=== PATIENT | male | born 1960 | race Asian ===

== ENCOUNTER 2023-07-14 11:18 | Inpatient (IN) | payer SELFPAY ==
[2023-07-14] VITALS (13 sets, daily range): BP systolic 172–237; BP diastolic 84–106; PULSE 73–96; RESP 14–21; TEMP 36.6–36.8; O2SAT 98–100; BMI 16.9
--- NOTE | ~2023-07-14 | CT_ITS ---
EXAMINATION: CT abdomen pelvis wo con DATE: 07/14/2023 13:32 INDICATION: Hypertension TECHNIQUE: Computed tomography (CT) of the abdomen and pelvis was performed without intravenous contr ast. Automated exposure control and iterative reconstruction technique were employed. The dose-length product was 187.62 mGy-cm. COMPARISON: None FINDINGS: Mild discoid atelectasis at the posterior sulcus of the right lower lobe. Heart size is normal. No pe ricardial or pleural effusion. Decreased attenuation the blood pool relative to myocardium consistent with anemia. Liver, gallbladder, spleen, pancreas and bilateral adrenal glands are normal. Kidneys a nd ureters are normal with no urolithiasis, hydroureteronephrosis or perinephric/ureteral stranding. Bowels including the appendix are normal with no obstruction. Bladder is unremarkable. Small amount o f nonspecific free fluid in the deep pelvis. No abscess or free intraperitoneal gas. No pathologicall y enlarged abdominal or pelvic lymphadenopathy. Mild scattered degenerative skeletal changes in the v isualized spine and bilateral hip and sacroiliac joints. IMPRESSION: 1. Small amount of nonspecific ascites in the deep pelvis. No urolithiasis or acute intra-abdominal/p elvic process. Reviewed, dictated and finalized at location A. ICATION PACKAGING CONSULTANT IMPRESSION: 1. Small amount of nonspecific ascites in the deep pelvis. No urolithiasis or a cute intra-abdominal/pelvic process.
--- NOTE | ~2023-07-14 | MR_ITS ---
EXAMINATION: MR brain/brain stem wo/w con DATE: 07/18/2023 09:11 INDICATION: Visual loss in left eye. TECHNIQUE: Magnetic resonance imaging (MRI) of the brain and brainstem was performed without and with 9 mL MultiHance intravenous contrast. COMPARISON: None. FINDINGS: There are punctate foci of old microhemorrhage in the left thalamus and left occipital lobe . There are scattered areas of nonspecific increased T2-weighted signal intensity in the cerebral whi te matter. There are old infarcts involving the right basal ganglia, bilateral thalami, and bilateral temporal stem white matter. There is no intracranial hemorrhage or acute infarction. The ventricles are normal in size. There is a 3 mm mass of contrast enhancement at left porus acusticus. The inner e ars and tympanic cavities are normal. There are trace mastoid effusions. The orbits are normal. IMPRESSION: 1. 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 2. Mild nonspecific cerebral white matter disease, which likely represents chronic small vessel ische janina disease. 3. 3 mm mass of contrast enhancement at left porus acusticus, which may be normal venous enhancement or a vestibular schwannoma. Reviewed, dictated and finalized at location A. TESTER IMPRESSION: 1. 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 2. Mild nonspecific cerebral white matter disease, which likely represents biscuit packer francoise small vessel ischemic disease. 3. 3 mm mass of contrast enhancement at left porus acusticus, which may be norm al venous enhancement or a vestibular schwannoma.
--- NOTE | ~2023-07-14 | MR_ITS ---
EXAMINATION: MR orbits face neck wo/w con DATE: 07/18/2023 09:11 INDICATION: Left eye visual loss. TECHNIQUE: Magnetic resonance imaging (MRI) of the orbits was performed without and with 9 mL MultiHa nce intravenous contrast. COMPARISON: None. FINDINGS: The ocular globes are normal. The extraocular muscles are normal. The optic nerves and opti c chiasm are normal. There is no abnormal orbital mass. IMPRESSION: 1. Normal orbits. Reviewed, dictated and finalized at location A. NING DEVELOPER IMPRESSION: 1. Normal orbits.
--- NOTE | ~2023-07-14 | US_ITS ---
EXAMINATION: US renal BI DATE: 07/15/2023 10:53 INDICATION: Renal failure TECHNIQUE: Multiple grayscale and Doppler ultrasound images of the kidneys were obtained. COMPARISON: CT from yesterday. FINDINGS: The right kidney measures 9.9 x 4.6 x 5.3 cm. The left kidney measures 10.2 x 4.9 x 4.7 cm. The kidneys demonstrate normal parenchymal echogenicity. There is no hydronephrosis. The bladder is normal. IMPRESSION: 1. Normal kidneys without hydronephrosis. Reviewed, dictated and finalized at location B. D INTERVIEWER
[2023-07-14 11:50] LABS: Glucose Point of Care 182 mg/dl (65-105)
[2023-07-14 12:09] LABS: Basophils Percent Auto 0.4 % (0.2-1.2); Eosinophils Absolute Auto 0.7 K/mm3 (0-0.3); Eosinophils Percent Auto 6.6 % (0-4.4); Hematocrit 27.8 % (42.0-52.0); Hemoglobin 8.2 g/dL (14.0-18.0); Immature Granulocyte Absolute 0.04 K/mm3 (0.00-0.031); Immature Granulocyte Percent A 0.4 % (0-0.5); Lymphocytes Absolute Auto 2.29 K/mm3 (0.9-3.2); Lymphocytes Percent Auto 21.1 % (18.3-44.2); Mean Corpuscular HGB Conc 29.5 g/dl (32-36); Mean Corpuscular Hemoglobin 23.2 pg (26-34); Mean Corpuscular Volume 78.8 fl (80-100); Mean Platelet Volume 10.5 fl (7.4-10.4); Monocytes Absolute Auto 0.6 K/mm3 (0.1-0.6); Monocytes Percent Auto 5.2 % (2.6-8.5); Neutrophils Absolute Auto 7.2 K/mm3 (1.3-6.7); Neutrophils Percent Auto 66.3 % (45.5-73.1); Platelet Count Result 395 k/mm3 (150-375); Red Blood Count 3.53 M/mm3 (4.6-6.20); Red Cell Distribution Width 16.1 % (11.5-14.5); White Blood Count 10.9 K/mm3 (4.5-10.0)
[2023-07-14 12:19] LABS: Alanine Aminotransferase 14 U/L (6-50); Albumin Level 3.2 g/dL (3.5-5.1); Alkaline Phosphatase 191 U/L (38-126); Anion Gap 3 mmol/L (8-16); Aspartate Amino Transferase 25 U/L (17-59); Bilirubin,Total 0.3 mg/dL (0.2-1.3); Blood Urea Nitrogen 38 mg/dL (9-20); Calcium 9.4 mg/dL (8.4-10.2); Carbon Dioxide 26 mmol/L (22-30); Chloride 109 mmol/L (98-107); Estimated CRCL calculation 14 ml/min; Estimated Glomerular Filt Rate 19; Glucose 188 mg/dL (65-110); Potassium 4.9 mmol/L (3.4-5.0); Sodium 138 mmol/L (137-145)
[2023-07-14 12:27] LABS: Hemoglobin A1C 7.7 % (<5.7)
[2023-07-14 12:30] LABS: Appearance Urine Clear (Clear); Bacteria Urine None Seen /hpf; Bilirubin Urine Negative (Negative); Blood Urine 1+ (Negative); Color Urine Yellow (Yellow); Glucose Urine UA 2+ mg/dL (Negative); Ketones Urine Negative (Negative); Leukocyte Esterase Ur Negative LEU/UL (Negative); Need Manual Microscopic Reviewed; Nitrate Urine Negative (Negative); Protein Urine 4+ mg/dL (Negative); Specific Grav Ur 1.018 (1.001-1.035); Squamous Epithelial Cell Urine None seen /hpf (Few); Urobilinogen Urine 0.2 mg/dL (<2.0); WBC Urine 0-5 /hpf; pH Urine 6.5 (5.0-9.0)
[2023-07-14 12:37] LABS: Anisocytosis 1+ (NORMAL); Hypochromasia 1+ (NORMAL); Platelet Estimate Increased (Adequate); Schistocytes None Seen (NORMAL)
[2023-07-14 12:38] LABS: Add Urine Microscopic? YES
--- NOTE | 2023-07-14 14:13 | ED.GENADULT ---
HPI - General Adult General Chief complaint: Recheck/Abnormal Lab/Rx Stated complaint: HTN Time Seen by Provider: 07/14/23 12:59 History of Present Illness HPI narrative: Patient is a 62-year-old male who presents to the emergency department this afternoon after being sent in by an print binding worker due to severe retinopathy due to concern for undiagnosed and untreated hypertension and diabetes. Patient denies any past medical history and states that he does not take medications for anything. Patient was noted to be hypertensive at the print binding worker's office in did have an elevated blood pressure of 172/102 mmHg in our emergency department. Patient's nephew who is present at bedside states that the patient does have a family history of diabetes but as far as he is aware he was never diagnosed. Patient does not follow-up with any primary care physician and has not seen a doctor in many years. Patient denies any symptoms including chest pain, shortness of breath, nausea, vomiting, abdominal pain, dysuria, hematuria, constipation, diarrhea, melena, hematochezia, fevers or chills. Patient also denies any headaches, dizziness, lightheadedness, blurry visions, focal weakness, numbness and or tingling. There are no other modifying, alleviating, or precipitating factors at this time. Review of Systems Review of Systems: All systems are reviewed and are negative unless stated otherwise in the HPI. Exam Narrative: General: Alert, awake, afebrile, in no acute distress. HEENT: PERRL, no rhinorrhea, no post nasal drip, oropharynx clear. Neck: Trachea midline, no JVD, no lymphadenopathy. Cardiovascular: Regular rate and rhythm, no murmurs, rubs or gallops, no peripheral edema. Respiratory: Clear to auscultation bilaterally, no tachypnea, no wheezing, no rhonchi, no rubs, no respiratory distress. Abdomen: Soft, nontender, nondistended, no rebound, no guarding, no peritoneal signs. Musculoskeletal: No joint swelling or deformity, normal muscle tone. Skin: No rashes or petechia, no signs of infection. Psychiatric: Alert and oriented, normal behavior and judgment for situation. Neurological: Alert and oriented to person, place, and time. Follows all commands. No focal deficits, speech is clear and fluent. Course Vital Signs Vital signs: Vital Signs Temperature 97.8 F 07/14/23 11:43 Pulse Rate 86 07/14/23 11:43 Respiratory Rate 16 07/14/23 11:43 Blood Pressure 172/102 H 07/14/23 11:43 Pulse Oximetry 100 07/14/23 11:43 Oxygen Delivery Room Air 07/14/23 11:43 Temperature 97.8 F 07/14/23 11:43 Pulse Rate 78 07/14/23 15:00 Respiratory Rate 16 07/14/23 15:00 Blood Pressure 197/96 H 07/14/23 15:00 Pulse Oximetry 100 07/14/23 15:00 Oxygen Delivery Room Air 07/14/23 11:43 Medical Decision Making MDM Narrative Medical decision making narrative: The patient was evaluated by myself in the emergency department. History is obtained from patient who is an independent historian and physical exam was performed. External medical records were reviewed at this time. IV was established and pertinent tests were ordered. Laboratory results obtained revealing a hemoglobin of 8.2, hematocrit of 27.8, platelet count 395, creatinine of 3.30, BUN 38, hemoglobin A1c of 7.7 and a serum glucose of 188. Imaging studies obtained included CT abdomen and pelvis renal stone protocol without IV contrast which was independently interpreted by me revealing no acute process, no evidence of post renal obstruction, which is pending final radiology interpretation. Differential diagnosis considerations include undiagnosed hypertension, diabetes, and acute kidney injury secondary to uncontrolled diabetes versus uncontrolled hypertension versus dehydration. I have evaluated and discussed social determinants of health with the patient that could potentially impact subsequent diagnosis and treatment plans including loss of medical follow-up with
[2023-07-14] MEDS: SODIUM CHLORIDE 0.9% IV 1,000 ML 150 ML IV CONT (16:45)
--- NOTE | 2023-07-14 21:28 | ADMGEN ---
This patient, Adolph Bronson, was admitted to [facility] Surg Room 327-01. Patient/family oriented to hospital policies and general routines including ID bracelet, bed and alarms, visiting hours, pain management, procedures, bathroom and other care routines, personal items, smoking policy, room service/diet, and visiting hours. Information on how to activate the Rapid Response Team has been discussed. Patient/Family are encouraged to report perceived risks to care and to ask questions if they do not understand what they are told or what they should do.
[2023-07-14 22:01] LABS: Glucose Point of Care 251 mg/dl (65-105)
--- NOTE | 2023-07-14 22:43 | PM.IMHP ---
H&P: HPI History of Present Illness Date/Time: 07/14/23 17:30 Chief Complaint: Elevated blood pressure. Narrative: This is a very pleasant 62-year-old male smoker with no reported medical history albeit he admits that he has not seen a doctor since he came to the [facility] from [facility] in 1981 who presented to the emergency department via private vehicle for evaluation of elevated blood pressure. His primary language is Sinhala and attempts were made to find a clinical ob who speaks Sinhala, or even Citizen Of [place], but neither of those are available at this facility unfortunately. As such the following history is obtained from the patient as he is able to converse pretty well in [place], in addition to a family member who accompanies him. He over the last 7 to 8 months the patient has had progressive vision loss. Four months ago he was given prescription lenses with improvement however his vision and has continued to worsen since that time. He had an appointment with his eye doctor today at which time he was found to have evidence of significant retinopathy. Blood pressure was then obtained and it was reportedly over 200 systolic and he was referred to the ED for further evaluation. In the ED: Blood pressure was 172/102 on arrival. Weight was 44.2 kg and with further questioning he reports that he has lost at least 35 lb in the last 6 or 7 months unintentionally. Labs were significant for a microcytic anemia with a hemoglobin of 8.2, BUN 38, creatinine 3.30, glucose 188. Urine was positive for 4+ protein, 2+ glucose, 1+ blood, and 6 to [address] and pelvis [address] was done to rule out obstruction given elevated creatinine and blood in urine and that showed a small amount of nonspecific ascites in the deep pelvis but no acute intra-abdominal or pelvic process. ED physician spoke with the on-call primary care physician who has agreed to see the patient in follow-up as an outpatient however she recommends admission for hydration and workup of the kidney disease which may or may not be a new finding. At the time my evaluation the patient is resting comfortably and he reports that he is quite hungry. He admits however that his oral intake has not been great the last several months as food just does not taste seeing as good any more. He has been drinking a lot due to excessive thirst and in turn has been urinating quite a bit. Sometimes he gets up every hour to go to the bathroom. He has no complaints at this time. Review of Systems Review of Systems: Twelve systems were reviewed. Decreased vision over the last 7 a month as detailed in HPI. He has an occasional headache. No vertigo, facial droop, or difficulty speaking or swallowing. He denies focal weakness. He reports having a dry, smoker's cough. No chest or pleuritic pain. He denies sensations of racing heart. No orthopnea, paroxysmal nocturnal dyspnea, or current lower extremity edema. He reports that he had swelling in his legs ?like balloons? about a month ago but that has improved. No calf pain or tenderness. He has not noticed a decrease in urine output and denies hesitancy, urgency, and troubles emptying his bladder. No hematuria or foamy urine. Except as documented, all other systems were reviewed and are negative. [facility] Past Medical History Medical History Tobacco use Surgical History Surgical History (Updated 07/14/23 @ 22:53 by Rosamaria Mendez PA-C) No history of previous surgery Family History Family History (Updated 07/14/23 @ 22:54 by Rosamaria Mendez PA-C) Other Diabetes mellitus Social History Social History (Updated 07/14/23 @ 22:54 by Rosamaria Mendez PA-C) Social History: Surrogate medical decision maker: hair Rodriguez. Code status: Full code. Smoking packs per day: 0.5 Smoking cigarettes per day: 10.0 Years smoked: 43 Smoking pack-years: 21.50 Smoking status: Current every day smoker Tobacco type: cigarettes Alcohol intake: never Substance
[2023-07-14 23:17] LABS: Anion Gap 2 mmol/L (8-16); Blood Urea Nitrogen 38 mg/dL (9-20); Carbon Dioxide 23 mmol/L (22-30); Chloride 114 mmol/L (98-107); Creatine Kinase 100 U/L (55-170); Estimated CRCL calculation 14 ml/min; Estimated Glomerular Filt Rate 20; Glucose 292 mg/dL (65-110); Magnesium 1.7 mg/dL (1.6-2.3); Potassium 4.7 mmol/L (3.4-5.0); Sodium 139 mmol/L (137-145)
[2023-07-14 23:23] LABS: Iron 36 ug/dL (49-181)
[2023-07-14] MEDS: amLODIPine BESYLATE 5 MG TABLET PO (23:30)
[2023-07-14 23:31] LABS: Percent Iron Saturation 19 % (20-50)
[2023-07-15] VITALS (9 sets, daily range): BP systolic 178–188; BP diastolic 79–88; PULSE 82–92; RESP 14–20; TEMP 36.4–36.8; O2SAT 99–100; BMI 18.1
[2023-07-15 00:23] LABS: Folic Acid 9.5 ng/mL (2.76->20)
[2023-07-15] MEDS: LACTATED RINGERS 1,000 ML 75 ML IV CONT ×2 (05:54→20:24)
[2023-07-15 07:22] LABS: Anion Gap 2 mmol/L (8-16); Blood Urea Nitrogen 35 mg/dL (9-20); Calcium 8.3 mg/dL (8.4-10.2); Carbon Dioxide 23 mmol/L (22-30); Chloride 115 mmol/L (98-107); Estimated CRCL calculation 16 ml/min; Estimated Glomerular Filt Rate 21; Glucose 199 mg/dL (65-110); Potassium 4.5 mmol/L (3.4-5.0); Sodium 140 mmol/L (137-145)
[2023-07-15 07:39] LABS: Glucose Point of Care 187 mg/dl (65-105)
[2023-07-15 08:09] LABS: Hematocrit 23.1 % (42.0-52.0); Mean Corpuscular HGB Conc 29.9 g/dl (32-36); Mean Corpuscular Hemoglobin 23.4 pg (26-34); Mean Corpuscular Volume 78.3 fl (80-100); Mean Platelet Volume 11.3 fl (7.4-10.4); Platelet Count Result 352 k/mm3 (150-375); Red Blood Count 2.95 M/mm3 (4.6-6.20); Red Cell Distribution Width 15.9 % (11.5-14.5); White Blood Count 8.5 K/mm3 (4.5-10.0)
[2023-07-15 08:11] LABS: Hemoglobin 6.9 g/dL (14.0-18.0)
--- NOTE | 2023-07-15 08:25 | PC.NURSE ---
Provider notified of Hbg results.
[2023-07-15] MEDS: amLODIPine BESYLATE 5 MG TABLET 10 MG PO (09:16)
[2023-07-15] MEDS: SODIUM CHLORIDE 0.9% IV 250 ML 30 ML IV CONT (09:16)
--- NOTE | 2023-07-15 10:35 | PM.CNNEP ---
Assessment and Plan Assessment and plan (1) Renal failure: Code(s): N19 - Unspecified kidney failure Status: Chronic Assessment and Plan: suspect chronic kidney disease base on current GFR, he falls into stage 4 chronic kidney disease presumably due to HTN, DM, and vascular disease (+smoking) and possibly age follow-up on renal ultrasound quantitate proteinuria check serologies follow trend of repeat labs and uOP (2) Anemia: Code(s): D64.9 - Anemia, unspecified Status: Acute Assessment and Plan: suspect a chronic component related to underlying CKD/renal insufficiency B12 and folate okay anemia studies with mild iron deficiency as well PRBC transfusion todday given low H/H will dose with Epogen tomorrow IV venofer x 1 tomorrow as well follow trend of H/H (3) Hypertension: Code(s): I10 - Essential (primary) hypertension Status: Chronic Assessment and Plan: suspect a long standing undiagnosed issue better control noted with use of amlodipine follow trend of hemodynamics (4) New onset type 2 diabetes mellitus: Code(s): E11.9 - Type 2 diabetes mellitus without complications Status: Acute Assessment and Plan: positive symptoms (polyuria and polydipsia) and elevated A1c noted follow accu-cheks glycemic control per hospitalists dietary and plasma table operator consulted I will continue follow patient with you while he remains hospitalized to make further recommendations as deemed necessary. Thank you for allowing me to participate in the care of this patient. History of Present Illness Reason for Consult Consult date: 07/15/23 Reason for consult: chronic renal failure Chief Complaint Chief complaint: braden History of Present Illness Narrative: The patient is a 62-year-old Laotian male with no reported past medical history (although he freely admits that he has not seen a doctor in almost 40 years) who presented to [facility] Emergency room for further evaluation of hypertension/elevated blood pressure. Over last 7-8 months, the patient has been having issues and problems with vision loss. He was recently prescribed new prescription glasses but despite this, his vision has progressively worsened. On the day of admission, he had an appointment with his eye doctor at which time he was found to have significant evidence retinopathy. Furthermore, it was noted that his blood pressure was quite elevated on that office visit with a systolic BP greater than 200. given this finding as well as his issues related to vision loss, he was directed to the emergency room for further assessment. Workup and evaluation in the emergency room demonstrated the patient to be afebrile but with an elevated blood pressure of 172 systolic. He otherwise did not appear to be in any acute distress. On further questioning, he does report about a 35 lb weight loss in the last several months which coincides with his issues related to vision loss. Routine blood work was done which demonstrated anemia with a hemoglobin 8.2 and significant renal dysfunction with a BUN of 38 and a creatinine of 3.3 as well as a glucose of 188. He had no significant or critical electrolyte abnormalities present. His urinalysis was significant for 4+ protein, 2+ glucose, and 1+ blood. Given his renal dysfunction and abnormal urinalysis, he had a CT scan of his abdomen pelvis which demonstrated no evidence of obstructive uropathy but did show some nonspecific ascites but no other intra-abdominal pathology. Initial plans were for blood pressure control and subsequent outpatient follow-up of these newly diagnosed medical conditions but the on-call primary care physician requested admission for IV fluid hydration and further evaluation of his renal dysfunction so he was admitted to the hospital for these issues. Since his admission, he has been receiving IV fluids with no real significan
[2023-07-15 11:15] LABS: Glucose Point of Care 171 mg/dl (65-105)
[2023-07-15 16:18] LABS: Glucose Point of Care 234 mg/dl (65-105)
--- NOTE | 2023-07-15 17:00 | PM.IMPN ---
Progress Note: A&P Assessment and Plan (1) Renal failure: Code(s): N19 - Unspecified kidney failure Status: Acute Assessment and Plan: Nephrology on board Monitor renal function; avoid nephrotoxins (2) Elevated blood pressure reading: Code(s): R03.0 - Elevated blood-pressure reading, without diagnosis of hypertension Status: Acute (3) Microcytic anemia: Code(s): D50.9 - Iron deficiency anemia, unspecified Status: Acute Assessment and Plan: Transfuse PRBC (4) New onset type 2 diabetes mellitus: Code(s): E11.9 - Type 2 diabetes mellitus without complications Status: Acute (5) Tobacco use: Code(s): Z72.0 - Tobacco use Status: Acute (6) Vision loss: Code(s): H54.7 - Unspecified visual loss Status: Acute Plan The patient presented to the emergency department from his eye doctor's office for evaluation after he was found to have evidence of significant retinopathy and elevated blood pressure reading as detailed in HPI. Labs, imaging, EKG, and all reports were personally reviewed. Blood pressures have been persistently elevated and he likely has underlying hypertension. Given renal failure, he cannot be started on an SHER, ARB, or diuretic at this time and he will be started on amlodipine with close monitoring of blood pressures. BUN and creatinine were elevated at 38 and 3.30 respectively and in the context of his other labs, I suspect he has underlying chronic kidney disease. However he does admit that he has not been eating and drinking as much as usual and in fact he has had a 35 lb weight loss or so unintentionally as he just does not have taste like he used to which may be due to the kidney disease. He will be cautiously hydrated overnight to see if that makes any meaningful difference in his renal function. Renal ultrasound has been ordered. Nephrotoxic agents will be avoided. Nephrology has been consulted for evaluation; he does have significant amount of protein in his urine and that will be quantified. Check iron studies as well as B12 and folates given microcytic anemia. Hemoglobin A1c was 7.7% and this does not surprise the patient as he has a strong family history of diabetes. Recently has been having polydipsia and polyuria and also reports symptoms of neuropathy. The findings of retinopathy noted by the eye doctor today are likely due to a combination of longstanding, uncontrolled hypertension probably diabetes as well. Initiate sliding scale insulin, Accu-Cheks, and hypoglycemic protocol. Dietitian and diabetic educators have been consulted. Smoking cessation is encouraged and was discussed. He declines the need for a nicotine patch. Findings and treatment plan were discussed with the patient. Questions were solicited and answered to satisfaction. The patient's medical management will be taken over by the hospitalist team in a.m. Time Spent With Patient Time with patient: 25 - 35 minutes Subjective Date/time seen: 07/15/23 17:00 Interval history: Seen and examined; Taoism speaking Discussed with daughter who expresses frustration over poor compliance with medications Review of Systems Review of Systems: Twelve systems were reviewed. Decreased vision over the last 7 a month as detailed in HPI. He has an occasional headache. No vertigo, facial droop, or difficulty speaking or swallowing. He denies focal weakness. He reports having a dry, smoker's cough. No chest or pleuritic pain. He denies sensations of racing heart. No orthopnea, paroxysmal nocturnal dyspnea, or current lower extremity edema. He reports that he had swelling in his legs ?like balloons? about a month ago but that has improved. No calf pain or tenderness. He has not noticed a decrease in urine output and denies hesitancy, urgency, and troubles emptying his bladder. No hematuria or foamy urine. Except as documented, all other systems were reviewed and are negative. Constitutional: Co
[2023-07-15] MEDS: INSULIN ASPART (*BKC) 100 UNITS/ML SUB-Q (18:17)
--- NOTE | 2023-07-15 19:29 | PC.NURSE ---
per physican communication order hold blood transfusion until AM blood draw, MD Shaho
[2023-07-15 20:27] LABS: Glucose Point of Care 156 mg/dl (65-105)
[2023-07-15 22:40] LABS: Hematocrit 26.3 % (42.0-52.0); Hemoglobin 8.2 g/dL (14.0-18.0)
[2023-07-16 06:00] VITALS: BP 164/82; PULSE 84; RESP 14; TEMP 36.4; O2SAT 100
[2023-07-16 06:42] LABS: Creatinine Urine 45.9 mg/dL; Urea Random Urine 298 MG/DL
[2023-07-16 07:16] LABS: Basophils Percent Auto 0.3 % (0.2-1.2); Eosinophils Absolute Auto 0.6 K/mm3 (0-0.3); Eosinophils Percent Auto 6.3 % (0-4.4); Hematocrit 28.2 % (42.0-52.0); Hemoglobin 8.9 g/dL (14.0-18.0); Immature Granulocyte Absolute 0.03 K/mm3 (0.00-0.031); Immature Granulocyte Percent A 0.3 % (0-0.5); Mean Corpuscular HGB Conc 31.6 g/dl (32-36); Mean Corpuscular Hemoglobin 24.5 pg (26-34); Mean Corpuscular Volume 77.7 fl (80-100); Mean Platelet Volume 10.1 fl (7.4-10.4); Monocytes Absolute Auto 0.5 K/mm3 (0.1-0.6); Monocytes Percent Auto 5.6 % (2.6-8.5); Neutrophils Absolute Auto 6.7 K/mm3 (1.3-6.7); Neutrophils Percent Auto 71.5 % (45.5-73.1); Platelet Count Result 315 k/mm3 (150-375); Red Blood Count 3.63 M/mm3 (4.6-6.20); Red Cell Distribution Width 15.6 % (11.5-14.5); White Blood Count 9.4 K/mm3 (4.5-10.0)
[2023-07-16 07:24] LABS: Potassium Urine Random 17.9 meq/L; Sodium Urine Random 124 meq/L
[2023-07-16 07:27] LABS: Eosinophil Urine None Seen % (None Seen); Total Protein Urine Random > 600 mg/dL; Urine Eos QC 2nd Tech Confirmed
[2023-07-16 07:29] LABS: Alanine Aminotransferase 11 U/L (6-50); Albumin Level 2.5 g/dL (3.5-5.1); Alkaline Phosphatase 159 U/L (38-126); Anion Gap 4 mmol/L (8-16); Aspartate Amino Transferase 25 U/L (17-59); Bilirubin,Total 0.4 mg/dL (0.2-1.3); Blood Urea Nitrogen 32 mg/dL (9-20); Calcium 8.4 mg/dL (8.4-10.2); Carbon Dioxide 21 mmol/L (22-30); Chloride 114 mmol/L (98-107); Creatine Kinase 88 U/L (55-170); Estimated CRCL calculation 16 ml/min; Estimated Glomerular Filt Rate 22; Glucose 179 mg/dL (65-110); Potassium 4.5 mmol/L (3.4-5.0); Sodium 139 mmol/L (137-145)
[2023-07-16 07:35] LABS: Complement C3 122 mg/dL (88-165)
[2023-07-16 07:56] LABS: Glucose Point of Care 156 mg/dl (65-105)
[2023-07-16] MEDS: dilTIAZem HCL CD 180 MG CAP.24HR PO (09:25)
[2023-07-16] MEDS: IRON SUCROSE COMPLEX 200 MG in SODIUM CHLORIDE 0.9% IV 100 ML 220 MG IVPB (09:25)
[2023-07-16] MEDS: EPOETIN ALFA 20,000 UNITS/ML VIAL 20000 UNITS SUB-Q (09:26)
[2023-07-16] MEDS: FUROSEMIDE INJ 40 MG/4 ML VIAL 20 MG IV PUSH (09:30)
[2023-07-16 11:39] LABS: Glucose Point of Care 278 mg/dl (65-105)
--- NOTE | 2023-07-16 12:10 | PC.NURSE ---
On 07/16/23, the MANAGER SPECIAL EVENTS, Luz, provided care and [facility]. I have reviewed the MANAGER SPECIAL EVENTS's documentation and agree with the findings.
[2023-07-16] MEDS: INSULIN ASPART (*BKC) 100 UNITS/ML SUB-Q (12:47)
[2023-07-16 14:05] VITALS: BP 180/91; PULSE 77; RESP 16; TEMP 36.4; O2SAT 98
--- NOTE | 2023-07-16 15:39 | PM.IMPN ---
Progress Note: A&P Assessment and Plan (1) Renal failure: Code(s): N19 - Unspecified kidney failure Status: Chronic Assessment and Plan: Nephrology on board Monitor renal function; avoid nephrotoxins (2) Elevated blood pressure reading: Code(s): R03.0 - Elevated blood-pressure reading, without diagnosis of hypertension Status: Acute Assessment and Plan: on Amlodipine (3) Microcytic anemia: Code(s): D50.9 - Iron deficiency anemia, unspecified Status: Acute Assessment and Plan: Transfuse PRBC, 2U (4) New onset type 2 diabetes mellitus: Code(s): E11.9 - Type 2 diabetes mellitus without complications Status: Acute (5) Tobacco use: Code(s): Z72.0 - Tobacco use Status: Acute (6) Vision loss: Code(s): H54.7 - Unspecified visual loss Status: Acute Assessment and Plan: Probably 2/2 Hypertensive retinopathy Plan The patient presented to the emergency department from his eye doctor's office for evaluation after he was found to have evidence of significant retinopathy and elevated blood pressure reading as detailed in HPI. Labs, imaging, EKG, and all reports were personally reviewed. Blood pressures have been persistently elevated and he likely has underlying hypertension. Given renal failure, he cannot be started on an SHER, ARB, or diuretic at this time and he will be started on amlodipine with close monitoring of blood pressures. BUN and creatinine were elevated at 38 and 3.30 respectively and in the context of his other labs, I suspect he has underlying chronic kidney disease. However he does admit that he has not been eating and drinking as much as usual and in fact he has had a 35 lb weight loss or so unintentionally as he just does not have taste like he used to which may be due to the kidney disease. He will be cautiously hydrated overnight to see if that makes any meaningful difference in his renal function. Renal ultrasound has been ordered. Nephrotoxic agents will be avoided. Nephrology has been consulted for evaluation; he does have significant amount of protein in his urine and that will be quantified. Check iron studies as well as B12 and folates given microcytic anemia. Hemoglobin A1c was 7.7% and this does not surprise the patient as he has a strong family history of diabetes. Recently has been having polydipsia and polyuria and also reports symptoms of neuropathy. The findings of retinopathy noted by the eye doctor today are likely due to a combination of longstanding, uncontrolled hypertension probably diabetes as well. Initiate sliding scale insulin, Accu-Cheks, and hypoglycemic protocol. Dietitian and diabetic educators have been consulted. Smoking cessation is encouraged and was discussed. He declines the need for a nicotine patch. Findings and treatment plan were discussed with the patient. Questions were solicited and answered to satisfaction. The patient's medical management will be taken over by the hospitalist team in a.m. Time Spent With Patient Time with patient: 25 - 35 minutes Subjective Date/time seen: 07/16/23 15:39 Interval history: Seen and examined; being managed for Hypertension, Anemia Seen and examined; eager to be discharged. Review of Systems Review of Systems: Twelve systems were reviewed. Decreased vision over the last 7 a month as detailed in HPI. He has an occasional headache. No vertigo, facial droop, or difficulty speaking or swallowing. He denies focal weakness. He reports having a dry, smoker's cough. No chest or pleuritic pain. He denies sensations of racing heart. No orthopnea, paroxysmal nocturnal dyspnea, or current lower extremity edema. He reports that he had swelling in his legs ?like balloons? about a month ago but that has improved. No calf pain or tenderness. He has not noticed a decrease in urine output and denies hesitancy, urgency, and troubles emptying his bladder. No hematuria or fo
--- NOTE | 2023-07-16 15:56 | P.PNNP_ITS ---
Progress Note: A&P Assessment and Plan (1) Renal failure: Code(s): N19 - Unspecified kidney failure Status: Chronic Assessment and Plan: * suspect chronic kidney disease * based on current GFR, he falls into stage 4 chronic kidney disease * evaluation to date: * renal ultrasound okay * nephrotic range protienuria noted * urine eosinophils negative * urine electrolytes non-prerenal * CPK normal * serologies pending * presumably due to HTN, DM, and vascular disease (+smoking) and possibly age * follow trend of repeat labs and uOP (2) Anemia: Code(s): D64.9 - Anemia, unspecified Status: Acute Assessment and Plan: * suspect a chronic component related to underlying CKD/renal insufficiency * B12 and folate okay * anemia studies with mild iron deficiency as well * PRBC transfusion yesterday * dosed with Epogen and venofer today * follow trend of H/H (3) Hypertension: Code(s): I10 - Essential (primary) hypertension Status: Chronic Assessment and Plan: * suspect a long standing undiagnosed issue * given proteinuria, change amlodipine to diltiazem * add PRN hydralazine * follow trend of hemodynamics (4) New onset type 2 diabetes mellitus: Code(s): E11.9 - Type 2 diabetes mellitus without complications Status: Acute Assessment and Plan: * positive symptoms (polyuria and polydipsia) and elevated A1c noted * follow accu-cheks * glycemic control per hospitalists Not opposed to discharge tomorrow from renal perspective if otherwise medically stable; he can follow-up with me in the office for ongoing managment of CKD as well for review of pending testing, Will continuje to follow. Subjective Date/time seen: 07/16/23 15:56 Interval history: Follow-up for renal insufficiency/chronic kidney disease. Tolerated PRBC transfusion yesterday with appropriate incrementation in H/H; no apparent distress noted; no other issues/events overnight or earlier this morning; anxious for discharge. Exam Narrative: General: thin but WD/WN Laotian male in NAD Heart: normal S1 and S2; no rub Lungs: clear to auscultation Abdomen: soft, nontender, nondistended, positive bowel sounds Extremities: no cyanosis or clubbing; no edema Skin: warm and dry Objective Data Vital Signs Vital Signs: Vital Signs Temp Pulse Resp BP Pulse Ox O2 Del Method 07/16/23 14:05 97.6 F 77 16 180/91 H 98 07/16/23 11:15 Room Air 07/16/23 11:46 Room Air 07/16/23 09:20 Room Air 07/16/23 06:00 97.6 F 84 14 164/82 H 100 07/15/23 22:00 97.9 F 90 14 178/88 H 99 07/15/23 19:34 84 20 99 Room Air Intake/Output Intake/Output: Intake & Output 07/13/23 07/14/23 07/15/23 07/16/23 23:59 23:59 23:59 23:59 Intake Total 600 2650 1600 Output Total 300 100 Balance 600 2350 1500 Meds/Results Medications: Active Medications Generic Name Dose Route Start Last Admin Trade Name Freq PRN Reason Stop Dose Admin Acetaminophen 650 mg 07/14/23 23:01 Acetaminophen 325 Mg Tablet PO Q6H PRN Mild Pain (1-3) or Fever Dextrose 12.5 gm 07/14/23 23:0
--- NOTE | 2023-07-16 15:56 | PM.PNNEP ---
Progress Note: A&P Assessment and Plan (1) Renal failure: Code(s): N19 - Unspecified kidney failure Status: Chronic Assessment and Plan: suspect chronic kidney disease based on current GFR, he falls into stage 4 chronic kidney disease evaluation to date: renal ultrasound okay nephrotic range protienuria noted urine eosinophils negative urine electrolytes non-prerenal CPK normal serologies pending presumably due to HTN, DM, and vascular disease (+smoking) and possibly age follow trend of repeat labs and uOP (2) Anemia: Code(s): D64.9 - Anemia, unspecified Status: Acute Assessment and Plan: suspect a chronic component related to underlying CKD/renal insufficiency B12 and folate okay anemia studies with mild iron deficiency as well PRBC transfusion yesterday dosed with Epogen and venofer today follow trend of H/H (3) Hypertension: Code(s): I10 - Essential (primary) hypertension Status: Chronic Assessment and Plan: suspect a long standing undiagnosed issue given proteinuria, change amlodipine to diltiazem add PRN hydralazine follow trend of hemodynamics (4) New onset type 2 diabetes mellitus: Code(s): E11.9 - Type 2 diabetes mellitus without complications Status: Acute Assessment and Plan: positive symptoms (polyuria and polydipsia) and elevated A1c noted follow accu-cheks glycemic control per hospitalists Not opposed to discharge tomorrow from renal perspective if otherwise medically stable; he can follow-up with me in the office for ongoing managment of CKD as well for review of pending testing, Will continuje to follow. Subjective Date/time seen: 07/16/23 15:56 Interval history: Follow-up for renal insufficiency/chronic kidney disease. Tolerated PRBC transfusion yesterday with appropriate incrementation in H/H; no apparent distress noted; no other issues/events overnight or earlier this morning; anxious for discharge. Exam Narrative: General: thin but WD/WN [place] male in NAD Heart: normal S1 and S2; no rub Lungs: clear to auscultation Abdomen: soft, nontender, nondistended, positive bowel sounds Extremities: no cyanosis or clubbing; no edema Skin: warm and dry Objective Data Vital Signs Vital Signs: Vital Signs Temp Pulse Resp BP Pulse Ox O2 Del Method 07/16/23 14:05 97.6 F 77 16 180/91 H 98 07/16/23 11:15 Room Air 07/16/23 11:46 Room Air 07/16/23 09:20 Room Air 07/16/23 06:00 97.6 F 84 14 164/82 H 100 07/15/23 22:00 97.9 F 90 14 178/88 H 99 07/15/23 19:34 84 20 99 Room Air Intake/Output Intake/Output: Intake & Output 07/13/23 07/14/23 07/15/23 07/16/23 23:59 23:59 23:59 23:59 Intake Total 600 2650 1600 Output Total 300 100 Balance 600 2350 1500 Meds/Results Medications: Active Medications Generic Name Dose Route Start Last Admin Trade Name Freq PRN Reason Stop Dose Admin Acetaminophen 650 mg 07/14/23 23:01 Acetaminophen 325 Mg Tablet PO Q6H PRN Mild Pain (1-3) or Fever Dextrose 12.5 gm 07/14/23 23:01 Dextrose 50% 25 Gm/50 Ml Syringe IV PUSH PRN PRN Hypoglycemia Protocol Diltiazem HCl 360 mg 07/17/23 09:00 Diltiazem Hcl Cd 180 Mg Cap.24hr PO QAM JARROD Glucagon 1 mg 07/14/23 23:01 Glucagon For Inj 1 Mg Vial IM PRN PRN Hypoglycemia Protocol Glucose 15 gm 07/14/23 23:01 Glucose Oral Gel 15 Gm Of Glucse In 37.5 Gm Tube PO PRN PRN Hypoglycemia Protocol Hydralazine HCl 10 mg 07/16/23 07:59 Hydralazine Hcl 20 Mg/Ml Vial IV PUSH Q8H PRN Blood Pressure - High Hydralazine HCl 50 mg 07/16/23 17:00 Hydralazine Hcl 50 Mg Tablet PO BID JARROD Dextrose 1,000 mls @ 100 mls/hr 07/14/23 23:01 Dextrose 5% 1,000 Ml IVPB PRN PRN Hypoglycemia Protocol Lactated Ringer's 1,000 mls @
[2023-07-16] MEDS: amLODIPine BESYLATE 5 MG TABLET 10 MG PO (16:00)
[2023-07-16 16:49] LABS: Iron 69 ug/dL (49-181)
[2023-07-16 16:58] LABS: Percent Iron Saturation 35 % (20-50)
[2023-07-16 17:17] LABS: Glucose Point of Care 109 mg/dl (65-105)
[2023-07-16 17:19] VITALS: BP 166/77
[2023-07-16] MEDS: hydrALAZINE HCL 50 MG TABLET PO (17:20)
[2023-07-16 18:26] VITALS: BP 147/77; PULSE 75
[2023-07-16 19:46] VITALS: O2SAT 98
[2023-07-16 21:34] LABS: Glucose Point of Care 196 mg/dl (65-105)
[2023-07-16 22:00] VITALS: BP 155/80; PULSE 87; RESP 16; TEMP 37.3; O2SAT 99
[2023-07-17 06:00] VITALS: BP 146/69; PULSE 79; RESP 14; TEMP 37.3; O2SAT 99
[2023-07-17 06:58] LABS: Basophils Percent Auto 0.3 % (0.2-1.2); Eosinophils Absolute Auto 0.5 K/mm3 (0-0.3); Eosinophils Percent Auto 5.5 % (0-4.4); Hematocrit 29.3 % (42.0-52.0); Hemoglobin 8.9 g/dL (14.0-18.0); Immature Granulocyte Absolute 0.03 K/mm3 (0.00-0.031); Immature Granulocyte Percent A 0.3 % (0-0.5); Lymphocytes Absolute Auto 1.83 K/mm3 (0.9-3.2); Lymphocytes Percent Auto 19.3 % (18.3-44.2); Mean Corpuscular HGB Conc 30.4 g/dl (32-36); Mean Corpuscular Hemoglobin 24.2 pg (26-34); Mean Corpuscular Volume 79.6 fl (80-100); Mean Platelet Volume 10.4 fl (7.4-10.4); Monocytes Absolute Auto 0.6 K/mm3 (0.1-0.6); Monocytes Percent Auto 6.2 % (2.6-8.5); Neutrophils Absolute Auto 6.5 K/mm3 (1.3-6.7); Neutrophils Percent Auto 68.4 % (45.5-73.1); Platelet Count Result 300 k/mm3 (150-375); Red Blood Count 3.68 M/mm3 (4.6-6.20); Red Cell Distribution Width 15.9 % (11.5-14.5); White Blood Count 9.5 K/mm3 (4.5-10.0)
[2023-07-17 07:11] LABS: Alanine Aminotransferase 11 U/L (6-50); Albumin Level 2.6 g/dL (3.5-5.1); Alkaline Phosphatase 157 U/L (38-126); Anion Gap 4 mmol/L (8-16); Aspartate Amino Transferase 29 U/L (17-59); Bilirubin,Total 0.3 mg/dL (0.2-1.3); Blood Urea Nitrogen 37 mg/dL (9-20); Calcium 8.4 mg/dL (8.4-10.2); Carbon Dioxide 24 mmol/L (22-30); Chloride 111 mmol/L (98-107); Estimated CRCL calculation 14 ml/min; Estimated Glomerular Filt Rate 19; Glucose 162 mg/dL (65-110); Potassium 4.8 mmol/L (3.4-5.0); Sodium 139 mmol/L (137-145)
[2023-07-17 07:57] LABS: Glucose Point of Care 157 mg/dl (65-105)
[2023-07-17] MEDS: dilTIAZem HCL CD 180 MG CAP.24HR 360 MG PO (09:00)
[2023-07-17] MEDS: hydrALAZINE HCL 25 MG TABLET PO (09:01)
[2023-07-17] MEDS: SODIUM CHLORIDE 0.9% IV 1,000 ML 75 ML IV CONT ×2 (09:01→22:21)
[2023-07-17 11:23] LABS: Glucose Point of Care 340 mg/dl (65-105)
[2023-07-17] MEDS: INSULIN ASPART (*BKC) 100 UNITS/ML SUB-Q (12:25)
--- NOTE | 2023-07-17 12:32 | PM.PNNEP ---
Progress Note: A&P Assessment and Plan (1) Renal failure: Code(s): N19 - Unspecified kidney failure Status: Chronic Assessment and Plan: suspect chronic kidney disease based on current GFR, he falls into stage 4 chronic kidney disease evaluation to date: renal ultrasound okay nephrotic range protienuria noted urine eosinophils negative urine electrolytes non-prerenal CPK normal serologies pending presumably due to HTN, DM, and vascular disease (+smoking) and possibly age follow trend of repeat labs and uOP (2) Anemia: Code(s): D64.9 - Anemia, unspecified Status: Acute Assessment and Plan: suspect a chronic component related to underlying CKD/renal insufficiency B12 and folate okay anemia studies with mild iron deficiency as well s/p PRBC transfusion dosed with Epogen and venofer on 07/16/23 follow trend of H/H (3) Hypertension: Code(s): I10 - Essential (primary) hypertension Status: Chronic Assessment and Plan: suspect a long standing undiagnosed issue given proteinuria, changed amlodipine to diltiazem add PRN hydralazine follow trend of hemodynamics (4) New onset type 2 diabetes mellitus: Code(s): E11.9 - Type 2 diabetes mellitus without complications Status: Acute Assessment and Plan: positive symptoms (polyuria and polydipsia) and elevated A1c noted follow accu-cheks glycemic control per hospitalists Not opposed to discharge from renal perspective if otherwise medically stable; he can follow-up with me in the office for ongoing management of CKD as well for review of pending testing. Will continue to follow. Subjective Date/time seen: 07/17/23 12:32 Interval history: Follow-up for renal insufficiency/chronic kidney disease. No new issues or concerns voiced at this time; renal function relatively stable; H/H better following recent PRBC transfusion; blood pressure readings doing better with recent medication adjustments; asking about potential discharge. Exam Narrative: General: thin but WD/WN [place] male in NAD Heart: normal S1 and S2; no rub Lungs: clear to auscultation Abdomen: soft, nontender, nondistended, positive bowel sounds Extremities: no cyanosis or clubbing; no edema Skin: warm and intact Objective Data Vital Signs Vital Signs: Vital Signs Temp Pulse Resp BP Pulse Ox O2 Del Method 07/17/23 12:00 98.6 F 76 16 155/64 H 98 07/17/23 08:55 Room Air 07/17/23 06:00 99.1 F 79 14 146/69 H 99 07/16/23 22:00 99.1 F 87 16 155/80 H 99 07/16/23 19:46 98 Room Air 07/16/23 18:26 75 147/77 H Intake/Output Intake/Output: Intake & Output 07/14/23 07/15/23 07/16/23 07/17/23 23:59 23:59 23:59 23:59 Intake Total 600 2650 2390 720 Output Total 300 100 Balance 600 2350 2290 720 Meds/Results Medications: Active Medications Generic Name Dose Route Start Last Admin Trade Name Freq PRN Reason Stop Dose Admin Acetaminophen 650 mg 07/14/23 23:01 Acetaminophen 325 Mg Tablet PO Q6H PRN Mild Pain (1-3) or Fever Dextrose 12.5 gm 07/14/23 23:01 Dextrose 50% 25 Gm/50 Ml Syringe IV PUSH PRN PRN Hypoglycemia Protocol Diltiazem HCl 240 mg 07/18/23 09:00 Diltiazem Hcl Cd 240 Mg Cap.24hr PO QAM JARROD Glucagon 1 mg 07/14/23 23:01 Glucagon For Inj 1 Mg Vial IM PRN PRN Hypoglycemia Protocol Glucose 15 gm 07/14/23 23:01 Glucose Oral Gel 15 Gm Of Glucse In 37.5 Gm Tube PO PRN PRN Hypoglycemia Protocol Hydralazine HCl 10 mg 07/16/23 07:59 Hydralazine Hcl 20 Mg/Ml Vial IV PUSH Q8H PRN Blood Pressure - High Hydralazine HCl 25 mg 07/17/23 08:00 07/17/23 09:01 Hydralazine Hcl 25 Mg Tablet PO 25 mg BIDWM JARROD Administration Dextrose 1,000 mls @ 100 mls/hr 07/14/23 23:01 Dextrose 5% 1,000 Ml IVPB PRN PRN Hypoglycem
--- NOTE | 2023-07-17 12:32 | P.PNNP_ITS ---
Progress Note: A&P Assessment and Plan (1) Renal failure: Code(s): N19 - Unspecified kidney failure Status: Chronic Assessment and Plan: * suspect chronic kidney disease * based on current GFR, he falls into stage 4 chronic kidney disease * evaluation to date: * renal ultrasound okay * nephrotic range protienuria noted * urine eosinophils negative * urine electrolytes non-prerenal * CPK normal * serologies pending * presumably due to HTN, DM, and vascular disease (+smoking) and possibly age * follow trend of repeat labs and uOP (2) Anemia: Code(s): D64.9 - Anemia, unspecified Status: Acute Assessment and Plan: * suspect a chronic component related to underlying CKD/renal insufficiency * B12 and folate okay * anemia studies with mild iron deficiency as well * s/p PRBC transfusion * dosed with Epogen and venofer on 07/16/23 * follow trend of H/H (3) Hypertension: Code(s): I10 - Essential (primary) hypertension Status: Chronic Assessment and Plan: * suspect a long standing undiagnosed issue * given proteinuria, changed amlodipine to diltiazem * add PRN hydralazine * follow trend of hemodynamics (4) New onset type 2 diabetes mellitus: Code(s): E11.9 - Type 2 diabetes mellitus without complications Status: Acute Assessment and Plan: * positive symptoms (polyuria and polydipsia) and elevated A1c noted * follow accu-cheks * glycemic control per hospitalists Not opposed to discharge from renal perspective if otherwise medically stable; he can follow-up with me in the office for ongoing management of CKD as well for review of pending testing. Will continue to follow. Subjective Date/time seen: 07/17/23 12:32 Interval history: Follow-up for renal insufficiency/chronic kidney disease. No new issues or concerns voiced at this time; renal function relatively stable; H/H better following recent PRBC transfusion; blood pressure readings doing better with recent medication adjustments; asking about potential discharge. Exam Narrative: General: thin but WD/WN [place] male in NAD Heart: normal S1 and S2; no rub Lungs: clear to auscultation Abdomen: soft, nontender, nondistended, positive bowel sounds Extremities: no cyanosis or clubbing; no edema Skin: warm and intact Objective Data Vital Signs Vital Signs: Vital Signs Temp Pulse Resp BP Pulse Ox O2 Del Method 07/17/23 12:00 98.6 F 76 16 155/64 H 98 07/17/23 08:55 Room Air 07/17/23 06:00 99.1 F 79 14 146/69 H 99 07/16/23 22:00 99.1 F 87 16 155/80 H 99 07/16/23 19:46 98 Room Air 07/16/23 18:26 75 147/77 H Intake/Output Intake/Output: Intake & Output 07/14/23 07/15/23 07/16/23 07/17/23 23:59 23:59 23:59 23:59 Intake Total 600 2650 2390 720 Output Total 300 100 Balance 600 2350 2290 720 Meds/Results Medications: Active Medications Generic Name Dose Route Start Last Admin Trade Name Freq PRN Reason Stop Dose Admin Acetaminophen 650 mg 07/14/23 23:01 Acetaminophen 325 Mg Tablet PO Q6H PRN Mild Pain (1-3) or Fever Dextrose 12.5 gm 07/14/23 23:0
[2023-07-17 14:00] VITALS: BP 155/64; PULSE 76; RESP 16; TEMP 37; O2SAT 98
--- NOTE | 2023-07-17 14:18 | PC.NURSE ---
On 07/17/23, the TRANSIT SPECIALIST, Luz, provided care and [facility]. I have reviewed the TRANSIT SPECIALIST's documentation and agree with the findings.
[2023-07-17 16:50] LABS: Glucose Point of Care 122 mg/dl (65-105)
--- NOTE | 2023-07-17 17:25 | PM.IMPN ---
Progress Note: A&P Assessment and Plan (1) Renal failure: Code(s): N19 - Unspecified kidney failure Status: Chronic Assessment and Plan: Nephrology on board Monitor renal function; avoid nephrotoxins (2) Elevated blood pressure reading: Code(s): R03.0 - Elevated blood-pressure reading, without diagnosis of hypertension Status: Acute Assessment and Plan: on Amlodipine (3) Microcytic anemia: Code(s): D50.9 - Iron deficiency anemia, unspecified Status: Acute Assessment and Plan: Transfuse PRBC, 2U (4) New onset type 2 diabetes mellitus: Code(s): E11.9 - Type 2 diabetes mellitus without complications Status: Acute (5) Tobacco use: Code(s): Z72.0 - Tobacco use Status: Acute (6) Vision loss: Code(s): H54.7 - Unspecified visual loss Status: Acute Assessment and Plan: Probably 2/2 Hypertensive retinopathy MRI brain w/wo contrast Plan The patient presented to the emergency department from his eye doctor's office for evaluation after he was found to have evidence of significant retinopathy and elevated blood pressure reading as detailed in HPI. Labs, imaging, EKG, and all reports were personally reviewed. Blood pressures have been persistently elevated and he likely has underlying hypertension. Given renal failure, he cannot be started on an SHER, ARB, or diuretic at this time and he will be started on amlodipine with close monitoring of blood pressures. BUN and creatinine were elevated at 38 and 3.30 respectively and in the context of his other labs, I suspect he has underlying chronic kidney disease. However he does admit that he has not been eating and drinking as much as usual and in fact he has had a 35 lb weight loss or so unintentionally as he just does not have taste like he used to which may be due to the kidney disease. He will be cautiously hydrated overnight to see if that makes any meaningful difference in his renal function. Renal ultrasound has been ordered. Nephrotoxic agents will be avoided. Nephrology has been consulted for evaluation; he does have significant amount of protein in his urine and that will be quantified. Check iron studies as well as B12 and folates given microcytic anemia. Hemoglobin A1c was 7.7% and this does not surprise the patient as he has a strong family history of diabetes. Recently has been having polydipsia and polyuria and also reports symptoms of neuropathy. The findings of retinopathy noted by the eye doctor today are likely due to a combination of longstanding, uncontrolled hypertension probably diabetes as well. Initiate sliding scale insulin, Accu-Cheks, and hypoglycemic protocol. Dietitian and diabetic educators have been consulted. Smoking cessation is encouraged and was discussed. He declines the need for a nicotine patch. Findings and treatment plan were discussed with the patient. The patient's medical management will be taken over by the hospitalist team in a.m. Subjective Date/time seen: 07/17/23 17:25 Interval history: Follow-up for renal insufficiency/chronic kidney disease. Tolerated PRBC transfusion yesterday with appropriate incrementation in H/H; no apparent distress noted; no other issues/events overnight or earlier this morning; anxious for discharge. Review of Systems Review of Systems: Twelve systems were reviewed. Decreased vision over the last 7 a month as detailed in HPI. He has an occasional headache. No vertigo, facial droop, or difficulty speaking or swallowing. He denies focal weakness. He reports having a dry, smoker's cough. No chest or pleuritic pain. He denies sensations of racing heart. No orthopnea, paroxysmal nocturnal dyspnea, or current lower extremity edema. He reports that he had swelling in his legs ?like balloons? about a month ago but that has improved. No calf pain or tenderness. He has not noticed a decrease in urine output and denies hesitancy, urge
[2023-07-17 20:00] VITALS: PULSE 76; RESP 14; O2SAT 99
[2023-07-17 21:20] LABS: Glucose Point of Care 199 mg/dl (65-105)
[2023-07-17 22:00] VITALS: BP 140/68; PULSE 76; RESP 14; TEMP 37.1; O2SAT 99
[2023-07-18 06:00] VITALS: BP 141/65; PULSE 73; RESP 14; TEMP 36.9; O2SAT 100
[2023-07-18 07:16] LABS: Basophils Percent Auto 0.3 % (0.2-1.2); Eosinophils Absolute Auto 0.4 K/mm3 (0-0.3); Eosinophils Percent Auto 4.1 % (0-4.4); Hematocrit 29.7 % (42.0-52.0); Hemoglobin 8.8 g/dL (14.0-18.0); Immature Granulocyte Absolute 0.05 K/mm3 (0.00-0.031); Immature Granulocyte Percent A 0.5 % (0-0.5); Lymphocytes Absolute Auto 1.94 K/mm3 (0.9-3.2); Lymphocytes Percent Auto 18.6 % (18.3-44.2); Mean Corpuscular HGB Conc 29.6 g/dl (32-36); Mean Corpuscular Hemoglobin 24.2 pg (26-34); Mean Corpuscular Volume 81.6 fl (80-100); Mean Platelet Volume 11.5 fl (7.4-10.4); Monocytes Absolute Auto 0.7 K/mm3 (0.1-0.6); Monocytes Percent Auto 6.4 % (2.6-8.5); Neutrophils Absolute Auto 7.3 K/mm3 (1.3-6.7); Neutrophils Percent Auto 70.1 % (45.5-73.1); Platelet Count Result 327 k/mm3 (150-375); Red Blood Count 3.64 M/mm3 (4.6-6.20); Red Cell Distribution Width 16.4 % (11.5-14.5); White Blood Count 10.4 K/mm3 (4.5-10.0)
[2023-07-18 07:27] LABS: Alanine Aminotransferase 12 U/L (6-50); Albumin Level 2.5 g/dL (3.5-5.1); Alkaline Phosphatase 159 U/L (38-126); Anion Gap 6 mmol/L (8-16); Aspartate Amino Transferase 27 U/L (17-59); Bilirubin,Total 0.3 mg/dL (0.2-1.3); Blood Urea Nitrogen 37 mg/dL (9-20); Calcium 8.1 mg/dL (8.4-10.2); Carbon Dioxide 20 mmol/L (22-30); Chloride 113 mmol/L (98-107); Estimated CRCL calculation 13 ml/min; Estimated Glomerular Filt Rate 17; Glucose 171 mg/dL (65-110); Potassium 4.4 mmol/L (3.4-5.0); Sodium 139 mmol/L (137-145)
[2023-07-18 07:54] LABS: Glucose Point of Care 177 mg/dl (65-105)
[2023-07-18 08:00] VITALS: O2SAT 100
[2023-07-18] MEDS: dilTIAZem HCL CD 240 MG CAP.24HR PO (08:27)
[2023-07-18] MEDS: amLODIPine BESYLATE 5 MG TABLET PO (09:38)
--- NOTE | 2023-07-18 10:51 | PM.PNNEP ---
Progress Note: A&P Assessment and Plan (1) Renal failure: Code(s): N19 - Unspecified kidney failure Status: Chronic Assessment and Plan: suspect chronic kidney disease based on current GFR, he falls into stage 4 chronic kidney disease evaluation to date: renal ultrasound okay nephrotic range protienuria noted urine eosinophils negative urine electrolytes non-prerenal CPK normal serologies pending presumably due to HTN, DM, and vascular disease (+smoking) and possibly age follow trend of repeat labs and uOP (2) Anemia: Code(s): D64.9 - Anemia, unspecified Status: Acute Assessment and Plan: suspect a chronic component related to underlying CKD/renal insufficiency B12 and folate okay anemia studies with mild iron deficiency as well s/p PRBC transfusion dosed with Epogen and venofer on 07/16/23 follow trend of H/H (3) Hypertension: Code(s): I10 - Essential (primary) hypertension Status: Chronic Assessment and Plan: suspect a long standing undiagnosed issue given proteinuria, changed amlodipine to diltiazem add PRN hydralazine follow trend of hemodynamics (4) New onset type 2 diabetes mellitus: Code(s): E11.9 - Type 2 diabetes mellitus without complications Status: Acute Assessment and Plan: positive symptoms (polyuria and polydipsia) and elevated A1c noted follow accu-cheks glycemic control per hospitalists Not opposed to discharge from renal perspective if otherwise medically stable; he can follow-up with me in the office for ongoing management of CKD as well for review of pending tests. Will continue to follow. Subjective Date/time seen: 07/18/23 10:51 Interval history: Follow-up for renal insufficiency/chronic kidney disease. Renal function relatively stable since admission/hospitalization; BP doing better as well with recent medication adjustments; no new issues or complaints voiced; no apparent distress noted. Exam Narrative: General: thin but WD/WN Laotian male in NAD Heart: normal S1 and S2; no rub Lungs: clear to auscultation Abdomen: soft, nontender, nondistended, positive bowel sounds Extremities: no cyanosis or clubbing; no edema Skin: no rash Objective Data Vital Signs Vital Signs: Vital Signs Temp Pulse Resp BP Pulse Ox O2 Del Method 07/18/23 08:00 100 Room Air 07/18/23 06:00 98.4 F 73 14 141/65 H 100 07/17/23 20:00 76 14 99 Room Air 07/17/23 22:00 98.8 F 76 14 140/68 99 07/17/23 14:00 98.6 F 76 16 155/64 H 98 Intake/Output Intake/Output: Intake & Output 07/15/23 07/16/23 07/17/23 07/18/23 23:59 23:59 23:59 23:59 Intake Total 2650 2390 1720 357 Output Total 300 100 Balance 2350 2290 1720 357 Meds/Results Medications: Active Medications Generic Name Dose Route Start Last Admin Trade Name Freq PRN Reason Stop Dose Admin Acetaminophen 650 mg 07/14/23 23:01 Acetaminophen 325 Mg Tablet PO Q6H PRN Mild Pain (1-3) or Fever Amlodipine Besylate 5 mg 07/18/23 09:00 07/18/23 09:38 Amlodipine Besylate 5 Mg Tablet PO 5 mg QAM JARROD Administration Dextrose 12.5 gm 07/14/23 23:01 Dextrose 50% 25 Gm/50 Ml Syringe IV PUSH PRN PRN Hypoglycemia Protocol Diltiazem HCl 240 mg 07/18/23 09:00 07/18/23 08:27 Diltiazem Hcl Cd 240 Mg Cap.24hr PO 240 mg QAM JARROD Administration Glucagon 1 mg 07/14/23 23:01 Glucagon For Inj 1 Mg Vial IM PRN PRN Hypoglycemia Protocol Glucose 15 gm 07/14/23 23:01 Glucose Oral Gel 15 Gm Of Glucse In 37.5 Gm Tube PO PRN PRN Hypoglycemia Protocol Hydralazine HCl 10 mg 07/16/23 07:59 Hydralazine Hcl 20 Mg/Ml Vial IV PUSH Q8H PRN Blood Pressure - High Hydralazine HCl 25 mg 07/17/23 08:00 07/17/23 09:01 Hydralazine Hcl 25 Mg Tablet PO 25 mg BIDWM JARROD Administration Dextrose 1,000
--- NOTE | 2023-07-18 10:51 | P.PNNP_ITS ---
Progress Note: A&P Assessment and Plan (1) Renal failure: Code(s): N19 - Unspecified kidney failure Status: Chronic Assessment and Plan: * suspect chronic kidney disease * based on current GFR, he falls into stage 4 chronic kidney disease * evaluation to date: * renal ultrasound okay * nephrotic range protienuria noted * urine eosinophils negative * urine electrolytes non-prerenal * CPK normal * serologies pending * presumably due to HTN, DM, and vascular disease (+smoking) and possibly age * follow trend of repeat labs and uOP (2) Anemia: Code(s): D64.9 - Anemia, unspecified Status: Acute Assessment and Plan: * suspect a chronic component related to underlying CKD/renal insufficiency * B12 and folate okay * anemia studies with mild iron deficiency as well * s/p PRBC transfusion * dosed with Epogen and venofer on 07/16/23 * follow trend of H/H (3) Hypertension: Code(s): I10 - Essential (primary) hypertension Status: Chronic Assessment and Plan: * suspect a long standing undiagnosed issue * given proteinuria, changed amlodipine to diltiazem * add PRN hydralazine * follow trend of hemodynamics (4) New onset type 2 diabetes mellitus: Code(s): E11.9 - Type 2 diabetes mellitus without complications Status: Acute Assessment and Plan: * positive symptoms (polyuria and polydipsia) and elevated A1c noted * follow accu-cheks * glycemic control per hospitalists Not opposed to discharge from renal perspective if otherwise medically stable; he can follow-up with me in the office for ongoing management of CKD as well for review of pending tests. Will continue to follow. Subjective Date/time seen: 07/18/23 10:51 Interval history: Follow-up for renal insufficiency/chronic kidney disease. Renal function relatively stable since admission/hospitalization; BP doing better as well with recent medication adjustments; no new issues or complaints voiced; no apparent distress noted. Exam Narrative: General: thin but WD/WN La[place]ian male in NAD Heart: normal S1 and S2; no rub Lungs: clear to auscultation Abdomen: soft, nontender, nondistended, positive bowel sounds Extremities: no cyanosis or clubbing; no edema Skin: no rash Objective Data Vital Signs Vital Signs: Vital Signs Temp Pulse Resp BP Pulse Ox O2 Del Method 07/18/23 08:00 100 Room Air 07/18/23 06:00 98.4 F 73 14 141/65 H 100 07/17/23 20:00 76 14 99 Room Air 07/17/23 22:00 98.8 F 76 14 140/68 99 07/17/23 14:00 98.6 F 76 16 155/64 H 98 Intake/Output Intake/Output: Intake & Output 07/15/23 07/16/23 07/17/23 07/18/23 23:59 23:59 23:59 23:59 Intake Total 2650 2390 1720 357 Output Total 300 100 Balance 2350 2290 1720 357 Meds/Results Medications: Active Medications Generic Name Dose Route Start Last Admin Trade Name Freq PRN Reason Stop Dose Admin Acetaminophen 650 mg 07/14/23 23:01 Acetaminophen 325 Mg Tablet PO Q6H PRN Mild Pain (1-3) or Fever Amlodipine Besylate 5 mg 07/18/23 09:00 07/18/23 09:38 Amlodipine Besylate 5 Mg Tablet PO 5 mg
[2023-07-18 11:23] LABS: Glucose Point of Care 242 mg/dl (65-105)
[2023-07-18] MEDS: INSULIN ASPART (*BKC) 100 UNITS/ML SUB-Q (11:42)
[2023-07-18 11:47] LABS: IFOB Positive Control Positive; Immunochemical Fecal Occult Bl Negative (N)
[2023-07-18 13:47] VITALS: BP 145/63; PULSE 75; RESP 20; TEMP 36.5; O2SAT 98
[2023-07-18 14:43] LABS: Albumin 2.1 g/dL (3.8-4.8); Alpha 1 Globulin 0.4 g/dL (0.2-0.3); Alpha 2 Globulin 0.9 g/dL (0.5-0.9); Beta 1 Globulin 0.3 g/dL (0.4-0.6); Protein, Total 5.1 g/dL (6.1-8.1)
[2023-07-18] MEDS: SODIUM CHLORIDE 0.9% IV 1,000 ML 75 ML IV CONT (15:30)
--- NOTE | 2023-07-18 17:02 | PM.DS ---
DS: Admitting Diagnosis Discharge Date 07/18/23 Admitting Diagnosis 1. 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 Hypertension 3. Microcytic Anemia 4. Diabetes Mellitus, new onset 5. Nicotine dependence with current daily use 6. Old CVA DS: Discharge Diagnosis Discharge Diagnosis (1) Renal failure: Code(s): N19 - Unspecified kidney failure Status: Chronic Assessment and Plan: Nephrology on board Monitor renal function; avoid nephrotoxins (2) Elevated blood pressure reading: Code(s): R03.0 - Elevated blood-pressure reading, without diagnosis of hypertension Status: Acute Assessment and Plan: on Amlodipine (3) Microcytic anemia: Code(s): D50.9 - Iron deficiency anemia, unspecified Status: Acute Assessment and Plan: Transfuse PRBC, 2U (4) New onset type 2 diabetes mellitus: Code(s): E11.9 - Type 2 diabetes mellitus without complications Status: Acute (5) Tobacco use: Code(s): Z72.0 - Tobacco use Status: Acute (6) Vision loss: Code(s): H54.7 - Unspecified visual loss Status: Acute Assessment and Plan: Probably 2/2 Hypertensive retinopathy MRI brain w/wo contrast Plan The patient presented to the emergency department from his eye doctor's office for evaluation after he was found to have evidence of significant retinopathy and elevated blood pressure reading as detailed in HPI. Labs, imaging, EKG, and all reports were personally reviewed. Blood pressures have been persistently elevated and he likely has underlying hypertension. Given renal failure, he cannot be started on an SHER, ARB, or diuretic at this time and he will be started on amlodipine with close monitoring of blood pressures. BUN and creatinine were elevated at 38 and 3.30 respectively and in the context of his other labs, I suspect he has underlying chronic kidney disease. However he does admit that he has not been eating and drinking as much as usual and in fact he has had a 35 lb weight loss or so unintentionally as he just does not have taste like he used to which may be due to the kidney disease. He will be cautiously hydrated overnight to see if that makes any meaningful difference in his renal function. Renal ultrasound has been ordered. Nephrotoxic agents will be avoided. Nephrology has been consulted for evaluation; he does have significant amount of protein in his urine and that will be quantified. Check iron studies as well as B12 and folates given microcytic anemia. Hemoglobin A1c was 7.7% and this does not surprise the patient as he has a strong family history of diabetes. Recently has been having polydipsia and polyuria and also reports symptoms of neuropathy. The findings of retinopathy noted by the eye doctor today are likely due to a combination of longstanding, uncontrolled hypertension probably diabetes as well. Initiate sliding scale insulin, Accu-Cheks, and hypoglycemic protocol. Dietitian and diabetic educators have been consulted. Smoking cessation is encouraged and was discussed. He declines the need for a nicotine patch. Findings and treatment plan were discussed with the patient. MRI Orbits: 1. Normal orbits. MRI Brain: 1. Old infarcts involving the right basal ganglia, bilateral thalami, and bilateral temporal stem white matter. 2. Mild nonspecific cerebral white matter disease, which likely represents chronic small vessel ischemic disease. 3. 3 mm mass of contrast enhancement at left porus acusticus, which may be normal venous enhancement or a vestibular schwannoma. US Renal: 1. Normal kidneys without hydronephrosis. CTAP: 1. Small amount of nonspecific ascites in the deep pelvis. No urolithiasis or acute intra-abdominal/pelvic process. 1. 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 Hypertension. Hydralazine, Amlodipine, Hydralazine, Diltiazem 3. Microcytic Anemia. Transfused 2U PrBC 4. Diabetes Mellitus, new onset 5. Nicotine dependence with current daily use 6. Old CVA. no
[2023-07-18 20:10] LABS: Cholesterol 291 mg/dL (0-200); HDL Direct 32 mg/dL; Triglycerides 156 mg/dL (<150)
[2023-07-18 20:21] LABS: LDL Cholesterol Direct 191 mg/dL
[2023-07-19 11:45] LABS: Kappa\\Lambda Light Chains 1.42 (0.26-1.65); Lambda Light Chain 86.6 mg/L (5.7-26.3)
[2023-07-20 01:21] LABS: Anti Glomerular Basement Memb <1.0 AI (<1.0)
[2023-07-20 12:36] LABS: Chloride Rand Ur 106 mmol/L (32-290); Chloride/Creatinine Rand Ur 226 (23-275); Creatinine Random Urine 47 mg/dL (20-320)
[2023-07-20 14:44] LABS: ANCA Screen Negative (Negative)
[2023-07-22 13:08] LABS: Creatinine, Random Urine 48 mg/dL (20-320); Total Protein/Creatinine Ratio 12917 mg/g creat (25-148)
== END 2023-07-18 17:36 | disposition home or self-care (01) | DRG 470 ==
LOC: ANHED 16:17 → ANH3MEDSUR 16:53
PROVIDERS: Internal Medicine Nephrology; Physician Assistant; Admitting Provider Internal Medicine; Emergency Provider Emergency Medicine; Visit Provider Internal Medicine
DX: I12.9 Hypertensive chronic kidney disease with stage 1 through stage 4 chronic kidney disease, or unspecified chronic kidney disease (principal); N17.9 Acute kidney failure, unspecified; E11.65 Type 2 diabetes mellitus with hyperglycemia; E11.319 Type 2 diabetes mellitus with unspecified diabetic retinopathy without macular edema; E11.42 Type 2 diabetes mellitus with diabetic polyneuropathy; E11.22 Type 2 diabetes mellitus with diabetic chronic kidney disease; N18.4 Chronic kidney disease, stage 4 (severe); D63.1 Anemia in chronic kidney disease; H35.039 Hypertensive retinopathy, unspecified eye; H54.7 Unspecified visual loss; D50.9 Iron deficiency anemia, unspecified; F17.210 Nicotine dependence, cigarettes, uncomplicated; Z86.73 Personal history of transient ischemic attack (TIA), and cerebral infarction without residual deficits
CPT/HCPCS: 36415; 36430; 70543; 70553; 74176; 76775; 80048; 80053; 80061; 81001; 82274; 82436; 82550; 82570; 82607; 82728; 82746; 82948; 83036; 83520; 83540; 83550; 83735; 83883; 84133; 84155; 84156; 84165; 84166; 84300; 84443; 84540; 85014; 85018; 85025; 85027; 85999; 86036; 86038; 86160; 86225; 86850; 86900; 86901; 86923; 96360; 96361; 96375; 97161; 97165; 99285; A9270; A9577; G0378; J1756; J1815; J1940; J7030; J7050; J7120; P9016; Q4081